=== PATIENT | male | born 2000 | race Caucasian/White ===

== ENCOUNTER 2024-02-27 09:42 | Emergency (ER) | payer OTHER, SELFPAY ==
[2024-02-27 09:44] VITALS: BP 113/68; PULSE 78; RESP 20; TEMP 37.1; O2SAT 100; BMI 18.3
[2024-02-27 10:16] LABS: Basophils Percent Auto 0.5 % (0.0-3.0); Eosinophils Percent Auto 1.1 % (0.0-7.0); Hematocrit 42.7 % (37.0-53.0); Hemoglobin* 14.6 gm/dL (13.5-17.5); Lymphocytes Percent Auto 44.8 % (20-44); Mean Corpuscular HGB Conc 34 gm/dL (32-36); Mean Corpuscular Hemoglobin 29 pg (26-34); Mean Corpuscular Volume 84 fL (80-100); Monocytes Percent Auto 10.6 % (0.0-11.0); Platelet Count* 188 K/uL (140-440); RDW Coefficient of Variation % 11.8 % (11.5-15.5); Red Blood Count 5.07 m/uL (4.30-5.90); White Blood Count* 3.77 K/uL (4.50-11.00)
[2024-02-27 10:17] LABS: Slide Review Reflex No
--- NOTE | 2024-02-27 10:25 | CRLHL7_ITS ---
For Patients: As a result of the Century Cures Act, medical imaging exams and procedure reports are released immediately into your electronic medical record. You may view this report before your referring provider. If you have questions, please contact your health care provider. Indication: Testicular pain Technique: Ultrasound of the scrotum and contents. Sonographic lópez-scale images were obtained with spectral and color Doppler waveform and spectral waveform analysis of the testicles. Comparison: None available. Findings: The testicles are normal in size and echotexture. No masses. No suspicious calcifications. There is preserved color Doppler within the bilateral testicles with questionable mild left-sided testicular hyperemia. Epididymis: Questionable mild hyperemia of the left epididymis. Otherwise unremarkable epididymi. Other: No sign of hydrocele. No sign of varicocele. Scrotal wall is normal. Impression: Mild hyperemia of the left testicle and epididymis which may represent minimal epididymo-orchitis. Otherwise, no acute abnormality. Dictated by Roberto Grider MD @ 02/27/2024 11:22:02 AM (Electronically Signed)
--- NOTE | 2024-02-27 10:26 | ED.GENADULT ---
HPI - General Adult General Chief complaint: Groin Pain Stated complaint: Testicular pain Time Seen by Provider: 02/27/24 09:55 Source: patient Mode of arrival: ambulatory Limitations: no limitations History of Present Illness HPI narrative: 23-year-old male coming in today complaining of testicular pain going on for about a week. Pain has gotten intensely worse in the last 4 hours. The patient denies dysuria, increased urinary frequency or urgency. He denies any penile discharge. He denies pain with defecation or ejaculation. Patient states that Friday and Friday of this week he had fevers and body aches, he does feel better from that. Appetite has been normal. Patient has 1 sexual partner for the last 3 years and is monogamous. He noticed that last night after ejaculation the pain did get worse, but that was the only time. He states that the right hurts significantly more than the left, but he also has discomfort on the left side. Pain does not radiate up into the abdomen. He is otherwise generally healthy, takes no medications. Related Data Previous Rx's ?Medication ?Instructions ?Recorded doxycycline hyclate 100 mg capsule 100 mg PO BID 10 days #20 caps 02/27/24 Allergies Allergy/AdvReac Type Severity Reaction Status Date / Time No Known Drug Allergies Allergy Verified 02/27/24 09:51 Review of Systems Status of ROS: Reports: 10 or more systems reviewed and unremarkable except as noted in History and below [facility] Social History Smoking Status: Current every day smoker Do you use any of these nicotine containing products: Vaping Products How often do you have a drink containing alcohol: never How often do you have six or more drinks on one occasion: Never AUDIT-C Alcohol total score: 0 Non-prescribed substance use: marijuana (any form) Exam Narrative: Exam Narrative: Well-nourished well-developed patient, slightly anxious. Alert and oriented. Answers questions appropriately. Thoughts are goal oriented and rational. No tangential or magical thinking noted. Patient speaks in full sentences without needing to catch his breath. HEENT: Normocephalic atraumatic. Pupils are equally round reactive to light. Extraocular muscles are intact. Conjunctivae are moist without any icterus noted. Moist mucous membranes. Abdomen: Soft and nontender nondistended with normal bowel sounds. No guarding or rebound. No masses or organomegaly appreciated. Extremities: Bilateral lower extremities are without edema. : Normal male external genitalia. No penile discharge noted. No erythema or swelling of the testicles. Patient has acute tenderness to light touch of both scrotum. He has tenderness to palpation of the testicles bilaterally including the bilateral epididymis. Skin: Well perfused without any obvious rashes. Const: Vital Signs, click to edit/add: Vital Signs - 24 hr 02/27/24 09:44 02/27/24 11:12 Temperature 98.7 F Pulse Rate [Pulse Oximeter] 78 66 Respiratory Rate 20 16 Blood Pressure [[facility]] 113/68 132/89 Pulse Oximetry 100 100 Oxygen Delivery Me thod Room Air Course Course ED Course: CBC unremarkable. Chemistries unremarkable. Normal CRP. UA unremarkable. COVID/influenza negative. Chlamydia/gonorrhea pending. Ultrasound showing possible left-sided epididymo-orchitis. Vital Signs Vital signs: Initial Vital Signs Temperature 98.7 F 02/27/24 09:44 Temperature Source Temporal Artery Scan 02/27/24 09:44 Pulse Rate 78 02/27/24 09:44 Respiratory Rate 20 02/27/24 09:44 Blood Pressure 113/68 02/27/24 09:44 Blood Pressure Mean 83 02/27/24 09:44 Blood Pressure Position Sitting 02/27/24 09:44 Pulse Oximetry 100 02/27/24 09:44 Vital Signs Temperature 98.7 F 02/27/24 09:44 Pulse Rate 78 02/27/24 09:44 Respiratory Rate 20 02/27/24 09:44 Blood Pressure 113/68 02/27/24 09:44 Pulse Oximetry 100 02/27/24 09:44 Temperature 98.7 F 02/27/24 09:44 Pulse Rate 66 02/27/24 11:12 Respiratory Rate 16 02/27/24 11:12 Blood Pressure 132/89 02/27/24 11:12 Pulse Oximetry 100 02/27/24 11:12 Oxygen Delivery Method Room Air 02/27/24 11:12 Medical Decision Making MDM Narrative Medical decision making narrative: 23-year-old male with a probable epididymal orchitis- will treat with ceftriaxone and doxycycline. Lab Data Lab results reviewed: Yes I reviewed the patient's lab results Labs: Lab Results 02/27/24 02/27/24 02/27/24 Range/Units 09:55 10:04 10:10 WBC 3.77 L (4.50-11.00) K/uL RBC 5.07 (4.30-5.90) m/uL Hgb 14.6 (13.5-17.5) gm/dL Hct 42.7 (37.0-53.0) % MCV 84 (80-100) fL MCH 29 (26-34) pg MCHC 34 (32-36) gm/dL RDW Coeff of Dereck 11.8 (11.5-15.5) % Plt Count 188 (140-440) K/uL Neut % (Auto) 43.0 (42.0-72.0) % Lymph % (Auto) 44.8 H (20-44) % Parke % (Auto) 10.6 (0.0-11.0) % Eos % (Auto) 1.1 (0.0-7.0) % Baso % (Auto) 0.5 (0.0-3.0) % Neut # (Auto) 1.60 L (1.7-7.0) K/uL Lymph # (Auto) 1.70 (0.90-2.90) K/uL Parke # (Auto) 0.40 (0.00-0.90) K/UL Eos # (Auto) 0.00 (0.00-0.50) K/uL Baso # (Auto) 0.00 (0.00-0.30) K/uL Abs Immat Gran (auto) 0.00 (0.00-0.30) K/uL Imm/Tot Granulo (auto) 0.0 % Sodium 140 (135-149) mmol/L Potassium 4.0 (3.6-5.1) mmol/L Chloride 105 (96-114) mmol/L Carbon Dioxide 27 (20-32) mmol/L Anion Gap 8 (7-15) mEq/L BUN 18 (5-24) mg/dL Creatinine 0.7 (0.5-1.5) mg/dL Estimated Creat Clear 144.58 Estimated GFR 134 ml/min Glucose 50 L (60-115) mg/dL Calcium 9.5 (8.4-10.6) mg/dL C-Reactive Protein < 0.5 L (0.5-1.0) mg/dL Urine Color Yellow (Yellow) Urine Appearance Clear (Clear) Urine pH 6.0 (5.0-8.5) Ur Specific Portia 1.025 (1.000-1.030) Urine Protein Negative (Negative) Urine Glucose (UA) Negative (Negative) Urine Ketones Negative (Negative) Urine Blood Negative (Negative) Urine Nitrite Negative (Negative) Urine Bilirubin Negative (Negative) Urine Urobilinogen 0.2 (0.2-1.0) Ur Leukocyte Esterase Negative (Negative) Urine RBC 0-2 (0-2) Urine WBC 0-2 (0-5) Ur Squamous Epith Cells Few (None-Few) Urine Bacteria None (None) SARS-CoV-2 (PCR) Negative SARS-CoV-2 (Negative) Influenza Type A (PCR) Negative PCR FLU A (Negative) Influenza Type B (PCR) Negative PCR FLU B (Negative) Imaging Data Scrotal ultrasound: Attestation: I have reviewed the pertinent imaging results. Radiologist's impression: Ultrasound of the scrotum and contents. Sonographic lópez-scale images were obtained with spectral and color Doppler waveform and spectral waveform analysis of the testicles. Comparison: None available. Findings: The testicles are normal in size and echotexture. No masses. No suspicious calcifications. There is preserved color Doppler within the bilateral testicles with questionable mild left-sided testicular hyperemia. Epididymis: Questionable mild hyperemia of the left epididymis. Otherwise unremarkable epididymi. Other: No sign of hydrocele. No sign of varicocele. Scrotal wall is normal. Impression: Mild hyperemia of the left testicle and epididymis which may represent minimal epididymo-orchitis. Otherwise, no acute abnormality. Discharge Plan Discharge Clinical Impression: Acute epididymo-orchitis Patient Disposition: Home, Self-Care Condition: Stable Additional Instructions: You have an inflammation of the testicle - this is not unusual or abnormal to have. Treatment is with antibiotics. Take all antibiotics as prescribed. Prescriptions: New doxycycline hyclate 100 mg capsule 100 mg PO BID 10 Days Qty: 20 0RF Follow Up/Referrals: Provider,Not a Local [Primary Care Provider] - Stand Alone Forms: [facility] Info Instructions
[2024-02-27 10:28] LABS: Chloride* 105 mmol/L (96-114)
[2024-02-27 10:29] LABS: Sodium* 140 mmol/L (135-149)
[2024-02-27 10:30] LABS: Appearance Urine Clear (Clear); Bilirubin Urine Negative (Negative); Blood Urine Negative (Negative); Color Urine Yellow (Yellow); Glucose Urine Negative (Negative); Ketones Urine Negative (Negative); Leukocyte Esterase Urine Negative (Negative); Nitrite Urine Negative (Negative); Protein Urine Negative (Negative); Specific Gravity Urine 1.025 (1.000-1.030); Urobilinogen Urine 0.2 (0.2-1.0)
[2024-02-27 10:31] LABS: Creatinine* 0.7 mg/dL (0.5-1.5); Est. Creatinine Clearance* 144.58; Estimated Glomerular Filt Rate 134 ml/min
[2024-02-27 10:32] LABS: RBC Urine 0-2 (0-2); Squamous Epithelial Cell Urine Few (None-Few); WBC Urine 0-2 (0-5)
[2024-02-27 10:32] LABS: Anion Gap 8 mEq/L (7-15); Blood Urea Nitrogen* 18 mg/dL (5-24); Calcium* 9.5 mg/dL (8.4-10.6); Carbon Dioxide* 27 mmol/L (20-32); Glucose* 50 mg/dL (60-115)
[2024-02-27 10:35] LABS: C Reactive Protein* < 0.5 mg/dL (0.5-1.0)
[2024-02-27 10:53] LABS: PCR FLU A Negative PCR FLU A (Negative); PCR FLU B Negative PCR FLU B (Negative); SARS PCR* Negative SARS-CoV-2 (Negative)
[2024-02-27 11:12] VITALS: BP 132/89; PULSE 66; RESP 16; O2SAT 100
[2024-02-27] MEDS: cefTRIAXone 500 MG VIAL IM (12:01)
[2024-02-27] MEDS: LIDOCAINE 1% 5 ml (pf) 5 ML VIAL 1 ML IM (12:02)
[2024-02-27 13:27] LABS: Chlamydia DNA Amplified* NOT DETECTED (No Detected); GC DNA Amplified* NOT DETECTED (No Detected)
== END 2024-02-27 12:20 | disposition home or self-care (01) ==
PROVIDERS: Emergency Provider Family Medicine
DX: N45.3 Epididymo-orchitis (principal)
CPT/HCPCS: 36415; 76870; 80048; 81001; 85025; 86140; 87086; 87491; 87591; 87631; 93976; 96372; 99284; J0696